=== PATIENT | female | born 1955 | race Hispanic/Latino ===

== ENCOUNTER → 2018-09-03 | Outpatient (CLI) | payer MEDICARE ==
[~2018-09-03] MED LIST: TYLENOL WITH C1 EAC1 PO
--- NOTE | 2018-09-03 14:06 | Diagnostic Imaging Report ---
Exam: Bone mineral density study. History: Osteoporosis Comparison: None Discussion: Evaluation of the left hip and lumbar spine was performed. The study is technically adequate. The patient's fracture risk is compared to an age-matched control. The patient denies prior surgery/fracture of the spine, hips or forearm. Left hip femoral neck bone mineral density: 0.7 g/cm2, T-score is -1.5, Z-score is 0. Left hip total bone mineral density: 0.8 g/cm2, T-score is -1.2, Z-score is -0.1. Lumbar spine total bone mineral density: 0.8 g/cm2, T-score is -2.4, Z-score is -0.6. Impression: 1. Bone mineralization by WHO Classification is low bone mass/osteopenia, the fracture risk is increased. 2. The FRAX 10-year probability of major osteoporotic fracture is 14% and hip fracture is 1.4%. These probabilities assume the patient is untreated. Signed by: Dr. Nakul Arevalo D.O., M.M.M. on 09/03/2018 2:03 PM
--- NOTE | 2018-09-06 08:36 | Diagnostic Imaging Report ---
#[id number] - MGSCRBIL #BILATERAL DIGITAL SCREENING MAMMOGRAM WITH CAD: 09/03/2018 CLINICAL: Routine screening. Comparison is made to exams dated: 08/18/2017 mammogram, 05/10/2015 mammogram and 04/17/2015 mammogram - [facility]. Current study contains 4 films. There are scattered fibroglandular elements in both breasts. Current study was also evaluated with a Computer Aided Detection (CAD) system. There are benign vascular calcifications in both breasts. There also are benign calcifications in the right breast. No significant masses, calcifications, or other findings are seen in either breast. There has been no significant interval change. IMPRESSION: BENIGN There is no mammographic evidence of malignancy. A 1 year screening mammogram is recommended. The patient will be notified by letter of the results. Brendan rivero/kaylin:09/03/2018 15:27:53 Insurance Sales Professional: Abby WILDER(R)(M), [facility] letter sent: Compared to Prior B9 Mammogram BI-RADS: 2 Benign
== END ==
LOC: MAMMO 12:27
PROVIDERS: ATTEND Family Medicine
DX: Z12.31 Encounter for screening mammogram for malignant neoplasm of breast (principal); M81.0 Age-related osteoporosis without current pathological fracture
CPT/HCPCS: 77067; 77080

== ENCOUNTER 2019-01-16 18:38 | Emergency (ER) | payer MEDICARE, OTHER ==
[~2019-01-16] VITALS: Ht 160 cm; Wt 63.5 kg
--- OUTSIDE RECORDS SUMMARY | 2019-01-16 18:40 | XMS REPORT ---
Author Author [facility] Address Unknown Phone Unavailable Care Team Providers Care Workers Compensation Administrator Name Role Phone Anthony ALY Unavailable Unavailable Maame ALLEN Unavailable Unavailable Problems This patient has no known problems. Allergies, Adverse Reactions, Alerts This patient has no known allergies or adverse reactions. Medications This patient has no known medications. Results Test Description Test Time Test Comments Text Results Atomic Results Result Comments BONE DXA DUAL ENERGY 2018-09-03 14:01:00 [place] [address] Patient Name: TEODORO NAVA MR #: [id number] : 1955 Age/Sex: 63/F Req #: [id number] Adm Physician: Ordered by: GERSON ALY Report #: [id number] Location: [facility] [place] Room/Bed: Procedure: [id number] DX/BONE DXA DUAL ENERGY Exam Date: Exam Time: REPORT STATUS: Signed Exam: Bone mineral density study. History: Osteoporosis Comparison: None Discussion: Evaluation of the left hip and lumbar spine was performed. The study is technically adequate. The patient's fracture risk is compared to an age-matched control. The patient denies prior surgery/fracture of the spine, hips or forearm. Left hip femoral neck bone mineral density: 0.7 g/cm2, T-score is -1.5, Z-score is 0. Left hip total bone mineral density: 0.8 g/cm2, T-score is -1.2, Z-score is -0.1. Lumbar spine total bone mineral density: 0.8 g/cm2, T-score is -2.4, Z-score is - 0.6. Impression: 1. Bone mineralization by WHO Classification is low bone mass/osteopenia, the fracture risk is increased. 2. The FRAX 10-year probability of major osteoporotic fracture is 14% and hip fracture is 1.4%. These probabilities assume the patient is untreated. Signed by: Dr. Dariel Arevalo D.O., M.M.M. on 09/03/2018 2:03 PM Dictated By: DARIEL AREVALO DO 02 Transcribed By: LUL on 09/03/181402 COPY TO: GERSON ALY MAMMOGRAPHY DIGITAL SCR BILAT 2018-09-03 13:57:00 [place] [address] Patient Name: TEODORO NAVA MR #: [id number] : 1955 Age/Sex: 63/F Req #: [id number] [facility] Physician: Ordered by: GERSON ALY Report #: [id number] Location: MAMMO Room/Bed: Procedure: [id number] MG/MAMMOGRAPHY DIGITAL SCR BILAT Exam Date: 09/03/18 Exam Time: 1233 REPORT STATUS: Signed #[id number] - MGSCRBIL #BILATERAL DIGITAL SCREENING MAMMOGRAM WITH CAD: 09/03/2018 CLINICAL: Routine screening. Comparison is made to exams dated: 08/18/2017 mammogram, 05/10/2015 mammogram and 04/17/2015 mammogram - [facility]. Current study contains 4 films. There are scattered fibroglandular elements in both breasts. Current study was also evaluated with a Computer Aided Detection (CAD) system. There are benign vascular calcifications in both breasts. There also are benign calcifications in the right breast. No significant masses, calcifications, or other findings are seen in either breast. There has been no significant interval change. IMPRESSION: BENIGN There is no mammographic evidence of malignancy. A 1 year screening mammogram is recommended. The patient will be notified by letter of the results. Clive rivero/tina:09/03/2018 15:27:53 Optical Instrument Assembler: Abby MOORE)(Maame), [facility] letter sent: Compared to Prior B9 Mammogram BI-RADS: 2 Benign Dictated By: CLIVE TEJADA DO 1527 Transcribed By: TINA on 09/03/18 1527 COPY TO: GERSON ALY MAMMOGRAPHY DIGITAL SCR BILAT [place] [address] Patient Name: TEODORO NAVA MR #: [id number] : 1955 Age/Sex: 62/F Req #: [id number] Adm Physician: Ordered by: RON ALLEN MD Report #: [id number] Location: MAMMO Room/Bed: Procedure: [id number] MG/MAMMOGRAPHY DIGITAL SCR BILAT Exam Date: 08/18/17 Exam Time: 1009 REPORT STATUS: Signed #[id number] - MGSCRBIL #BILATERAL DIGITAL SCREENING MAMMOGRAM WITH CAD: 08/18/2017 CLINICAL: Routine screening. Comparison is made to exams dated: 04/28/2016 mammogram, 05/10/2015 mammogram and 08/12/2012 mammogram - [facility]. Current study contains 4 films. There are scattered fibroglandular elements in both breasts. Current study was also evaluated with a Computer Aided Detection (CAD) system. There are benign vascular calcifications in both breasts. Dermal calcification in the right breast is present. No significant masses, calcifications, or other findings are seen in either breast. There has been no significant interval change. IMPRESSION: BENIGN There is no mammographic evidence of malignancy. A 1 year screening mammogram is recommended. The patient will be notified by letter of the results. Clive Tejada Jr., D.O. cw/:08/22/2017 12:31:36 Optical Instrument Assembler: Abby MOORE)(Maame), [facility] letter sent: Compared to Prior B9 Mammogram BI-RADS: 2 Benign Dictated By: CLIVE TEJADA DO 1231 Transcribed By: TINA on 08/22/17 1231 COPY TO: RON ALLEN MD
[2019-01-16 19:40] VITALS: BP 155/74
== END 2019-01-16 19:41 | disposition home or self-care (01) ==
LOC: ER 18:38
DX: E11.65 Type 2 diabetes mellitus with hyperglycemia (principal); Z63.79 Other stressful life events affecting family and household; I10 Essential (primary) hypertension; E78.5 Hyperlipidemia, unspecified
CPT/HCPCS: 36415; 82948; 99282

== ENCOUNTER 2019-04-19 02:27 | Emergency (ER) | payer MEDICARE, OTHER ==
[~2019-04-19] VITALS: Ht 160 cm; Wt 64.0 kg
[2019-04-19] MEDS ORDERED: ALBUTEROL/IPRATROPIUM 3 ML NEB NEB ONE (03:15)
[2019-04-19] MEDS ORDERED: PREDNISONE 20 MG TAB PO SCH (03:15)
--- NOTE | 2019-04-19 03:56 | Diagnostic Imaging Report ---
EXAMINATION: CHEST 2 VIEWS INDICATION: ^Cough ^[id number] ^[id number] COMPARISON: None available FINDINGS: PA and lateral views TUBES and LINES: None. LUNGS: Lungs are well inflated. There is no evidence of pneumonia or pulmonary edema. PLEURA: No pleural effusion or pneumothorax. HEART AND MEDIASTINUM: The cardiomediastinal silhouette is unremarkable.. BONES AND SOFT TISSUES: Degenerative changes of the spine. Soft tissues are unremarkable. UPPER ABDOMEN: No free air under the diaphragm. Cholecystectomy clips in the right upper quadrant. IMPRESSION: No acute thoracic abnormality. Signed by: Dr. Anel Chappell MD on 04/19/2019 3:53 AM
[2019-04-19 05:21] LABS: BILIRUBIN,URINE NEGATIVE (NEGATIVE); CLARITY,URINE SL CLOUDY (CLEAR); COLOR,URINE YELLOW (YELLOW); KETONES,URINE NEGATIVE (NEGATIVE); LEUKOCYTE ESTERASE ,URINE SMALL (NEGATIVE); NITRITE,URINE NEGATIVE (NEGATIVE); PROTEIN,URINE DIPSTICK NEGATIVE (NEGATIVE); URINE UROBILINOGEN 0.2 mg/dL (0.2 - 1)
[2019-04-19 05:47] LABS: BACTERIA,URINE MANY /HPF; EPITHELIAL CELLS,URINE FEW /LPF; WBC,URINE (MAN) >50 /HPF (0-5)
[2019-04-19 05:48] LABS: RENAL EPITHELIAL CELLS,URINE FEW; TRANSITIONAL EPI CELLS,URINE FEW
[2019-04-19] MEDS ORDERED: PREDNISONE 20 MG TAB ONE (06:34)
== END 2019-04-19 06:44 | disposition home or self-care (01) ==
LOC: ER 02:27
DX: R05 Cough (principal); J04.0 Acute laryngitis; J06.9 Acute upper respiratory infection, unspecified; N30.91 Cystitis, unspecified with hematuria
CPT/HCPCS: 71046; 81001; 93005; 99284; J7512

== ENCOUNTER 2019-04-24 19:05 | Emergency (ER) | payer MEDICARE, OTHER ==
[~2019-04-24] VITALS: Ht 160 cm; Wt 64.0 kg
[2019-04-24 20:13] LABS: BASOPHILS # (AUTO) 0.1 (0.0-0.1); BASOPHILS % 0.8 % (0.0-1.0); EOSINOPHILS # (AUTO) 0.2 (0.0-0.4); EOSINOPHILS % 1.2 % (0.0-6.0); HEMATOCRIT 36.7 % (34.2-44.1); HEMOGLOBIN 11.7 g/dL (12.0-16.0); LYMPHOCYTES % 37.9 % (18.0-39.1); MEAN CORPUSCULAR HEMOGLOBIN 30.1 pg (28-32); MEAN CORPUSCULAR HGB CONC 31.9 g/dL (31-35); MEAN CORPUSCULAR VOLUME 94.3 fL (81-99); MONOCYTES # (AUTO) 0.8 (0.2-0.8); MONOCYTES % 6.3 % (4.4-11.3); NEUTROPHILS % 53.3 % (38.7-80.0); PLATELET COUNT 286 x10e3/uL (140-360); RED BLOOD COUNT 3.89 x10e6/uL (3.6-5.1); RED CELL DISTRIBUTION WIDTH 13.3 % (11.7-14.4)
[2019-04-24 20:14] LABS: BILIRUBIN,URINE NEGATIVE (NEGATIVE); CLARITY,URINE SL CLOUDY (CLEAR); COLOR,URINE YELLOW (YELLOW); KETONES,URINE NEGATIVE (NEGATIVE); LEUKOCYTE ESTERASE ,URINE NEGATIVE (NEGATIVE); NITRITE,URINE NEGATIVE (NEGATIVE); PROTEIN,URINE DIPSTICK TRACE (NEGATIVE); URINE UROBILINOGEN 0.2 mg/dL (0.2 - 1)
--- NOTE | 2019-04-24 20:26 | Diagnostic Imaging Report ---
EXAMINATION: CHEST SINGLE (PORTABLE) INDICATION: ^ERMD ORDER ^[id number] ^1958 ^Y COMPARISON: 04/19/2019 FINDINGS: AP view TUBES and LINES: None. LUNGS: Lungs are well inflated. Lungs are clear. There is no evidence of pneumonia or pulmonary edema. PLEURA: No pleural effusion or pneumothorax. HEART AND MEDIASTINUM: The cardiomediastinal silhouette is unremarkable. BONES AND SOFT TISSUES: No acute osseous lesion. Soft tissues are unremarkable. UPPER ABDOMEN: No free air under the diaphragm. IMPRESSION: No acute thoracic abnormality. Signed by: Dr. Eliot Mccloud MD on 04/24/2019 8:23 PM
[2019-04-24 20:28] LABS: ALANINE AMINOTRANSFERASE 22 IU/L (0-55); ALBUMIN 3.8 g/dL (3.5-5.0); ALBUMIN/GLOBULIN RATIO 1.1 (0.8-2.0); ALKALINE PHOSPHATASE 46 IU/L (40-150); ANION GAP 16.6 mmol/L (8-16); BLOOD UREA NITROGEN 30 mg/dL (7-26); BUN/CREATININE RATIO 37 (6-25); CALCIUM 9.8 mg/dL (8.4-10.2); CARBON DIOXIDE 27 mmol/L (22-29); CHLORIDE 100 mmol/L (98-107); CREATINE KINASE 41 IU/L (29-168); CREATININE, SERUM 0.81 mg/dL (0.57-1.11); EST GLOMERULAR FILTRATION RATE > 60 ML/MIN (60-); GLUCOSE 116 mg/dL (74-118); POTASSIUM 3.6 mmol/L (3.5-5.1); SODIUM 140 mmol/L (136-145)
[2019-04-24 20:29] LABS: PREGNANCY TEST, URINE NEGATIVE (NEGATIVE)
[2019-04-24 20:34] LABS: BACTERIA,URINE FEW /HPF; CALCIUM OXALATE CRYSTALS,UR MANY (FEW); EPITHELIAL CELLS,URINE RARE /LPF; RBC,URINE 0-5 /HPF (0-5); WBC,URINE (MAN) 0-5 /HPF (0-5)
[2019-04-24 21:38] VITALS: BP 114/57
== END 2019-04-24 22:15 | disposition home or self-care (01) ==
LOC: ER 19:05
DX: R06.00 Dyspnea, unspecified (principal); R05 Cough; J20.9 Acute bronchitis, unspecified
CPT/HCPCS: 36415; 71045; 80053; 81001; 81025; 82550; 82553; 84484; 85025; 93005; 99283

== ENCOUNTER 2019-07-23 18:47 | Emergency (ER) | payer OTHER ==
[~2019-07-23] VITALS: Ht 160 cm; Wt 64.0 kg
[2019-07-23] MEDS ORDERED: ONDANSETRON HCL 4 MG ORAL DISINTEGRATING TAB ONE (19:53)
[2019-07-23] MEDS ORDERED: ONDANSETRON HCL 4 MG ORAL DISINTEGRATING TAB PO ONE (20:00)
== END 2019-07-23 20:30 | disposition home or self-care (01) ==
LOC: ER 18:55
DX: E11.65 Type 2 diabetes mellitus with hyperglycemia (principal); I10 Essential (primary) hypertension; E78.5 Hyperlipidemia, unspecified
CPT/HCPCS: 36415; 82948; 99282; Q0162

== ENCOUNTER → 2020-08-24 | Outpatient (CLI) | payer MEDICARE ==
--- NOTE | 2020-08-24 12:48 | Diagnostic Imaging Report ---
EXAM: BONE MINERAL DENSITY HISTORY: Osteoporosis COMPARISON: Bone density evaluation 09/03/2018 DISCUSSION: Evaluation of the left hip and lumbar spine was performed utilizing DEXA Hologic bone densitometer. The study is technically adequate. The patient's fracture risk is compared to an age-matched control. The patient denies prior surgery/fracture of the spine, hips or forearm. Left hip femoral neck bone mineral density: 0.706 g/cm2, T-score is -1.4, Z-score is 0.2. Left hip total bone mineral density: 0.775 g/cm2, T-score is -1.4, Z-score is -0.1. Total left hip bone mineral density is decreased by -2.9% compared to prior exam, which is not statistically significant. Lumbar spine total bone mineral density: 0.811 gm/cm2, T-score is -2.1, Z-score is -0.2. Total lumbar spine bone mineral density is increased by 3.1% compared to prior exam, which is statistically significant. Impression: Bone mineralization by WHO Classification is osteopenia, the fracture risk is increased. World Health Organization Fracture Risk Assessment Tool estimates 10 year fracture risk of 25% for major osteoporotic fracture and 2.3% for hip fracture. Fracture probability calculated for an untreated patient and probability may be lower if patient has received treatment. Signed by: Dr. Rajesh Mondragon M.D. on 08/24/2020 12:44 PM
== END ==
LOC: MAMMO 11:52
PROVIDERS: ATTEND Family Medicine
DX: Z12.31 Encounter for screening mammogram for malignant neoplasm of breast (principal); Z13.820 Encounter for screening for osteoporosis
CPT/HCPCS: 77067; 77080

== ENCOUNTER 2024-05-09 17:25 | Observation (INO) | payer MEDICARE ==
[~2024-05-09] VITALS: Ht 157.5 cm; Wt 64.4 kg
[~2024-05-09 17:25] MED LIST changes: -LACTATED RINGER'S 1,000 ML ONE; -LIDOCAINE HCL 2% LOCAL INJ 5 ML SDV VIAL INJ ONE; -PROPOFOL IV EMULSION 10 MG/ML 20 ML VIAL ONE; -PROPOFOL IV EMULSION 10 MG/ML 50 ML VIAL IV ONE
[2024-05-09 20:00] VITALS: BP 142/63; PULSE 83; RESP 18; TEMP 99.2; O2SAT 100
[2024-05-09 20:18] LABS: ANION GAP 15.9 mmol/L (8-16); CALCIUM 8.7 mg/dL (8.4-10.2); CREATININE, SERUM 0.65 mg/dL (0.57-1.11); POTASSIUM 3.9 mmol/L (3.5-5.1)
[2024-05-09] MEDS: DEXTROSE 5%/LACTATED RINGERS 1,000 ML IV SCH (20:26)
[2024-05-09] MEDS: Morphine 4mg INJECTION 4 MG/ML INJ IV PRN (20:26)
[2024-05-09] MEDS ORDERED: IOPAMIDOL 370 MG/ML 100 ML INFUS..BTL INJ ONE (20:30)
[2024-05-09 21:00] VITALS: BP 142/63; PULSE 83; RESP 18; TEMP 99.2; O2SAT 100
[2024-05-09 21:21] VITALS: BP 142/63; PULSE 83; RESP 18; TEMP 99.2; O2SAT 100
[2024-05-09] MEDS ORDERED: ACETAMINOPHEN 325 MG TAB PO PRN (23:30)
[2024-05-09] MEDS ORDERED: HYDRALAZINE HCL 20 MG/ML VIAL IV PRN (23:30)
[2024-05-09] MEDS ORDERED: ONDANSETRON HCL INJ 2MG/ML 2ML 2 MG/ML VIAL IV PRN (23:30)
[2024-05-10 04:00] VITALS: BP 135/63; PULSE 84; RESP 18; TEMP 98.3; O2SAT 98
[2024-05-10 06:26] LABS: BASOPHILS # (AUTO) 0.1 (0.0-0.1); BASOPHILS % 0.9 % (0.0-1.0); EOSINOPHILS # (AUTO) 0.2 (0.0-0.4); EOSINOPHILS % 1.8 % (0.0-6.0); HEMATOCRIT 35.4 % (34.2-44.1); HEMOGLOBIN 11.5 g/dL (12.0-16.0); LYMPHOCYTES # (AUTO) 2.9 (1.0-3.2); LYMPHOCYTES % 27.1 % (18.0-39.1); MEAN CORPUSCULAR HEMOGLOBIN 31.1 pg (28-32); MEAN CORPUSCULAR HGB CONC 32.5 g/dL (31-35); MEAN CORPUSCULAR VOLUME 95.7 fL (81-99); MONOCYTES % 8.9 % (4.4-11.3); NEUTROPHILS # (AUTO) 6.6 (2.1-6.9); NEUTROPHILS % 61.1 % (38.7-80.0); PLATELET COUNT 202 x10e3/uL (140-360); RED CELL DISTRIBUTION WIDTH 13.1 % (11.7-14.4); WHITE BLOOD COUNT 10.84 x10e3/uL (4.8-10.8)
[2024-05-10] MEDS ORDERED: DEXTROSE 50% SYRINGE 50 ML IV PRN (06:45)
[2024-05-10 06:56] LABS: ALBUMIN 3.4 g/dL (3.5-5.0); ANION GAP 12.8 mmol/L (8-16); BILIRUBIN,TOTAL 0.7 mg/dL (0.2-1.2); CALCIUM 8.6 mg/dL (8.4-10.2); CREATININE, SERUM 0.75 mg/dL (0.57-1.11); POTASSIUM 3.8 mmol/L (3.5-5.1); TOTAL PROTEIN 6.7 g/dL (6.5-8.1)
[2024-05-10] MEDS: INSULIN LISPRO 100 UNIT/1 ML 3ML VIAL SQ SCH (07:30)
[2024-05-10 08:00] VITALS: BP 113/62; PULSE 73; RESP 16; TEMP 98.4; O2SAT 100
[2024-05-10 09:00] VITALS: BP 113/62; PULSE 73; RESP 16; TEMP 98.4; O2SAT 100
[2024-05-10] MEDS: SENNOSIDES 8.6 MG TAB PO SCH (09:00)
[2024-05-10] MEDS: DOCUSATE SODIUM 100 MG CAP PO SCH (09:00)
[2024-05-10] MEDS ORDERED: OMEPRAZOLE40 MG PO (11:02)
[2024-05-10 12:00] VITALS: BP 119/62; PULSE 73; RESP 16; TEMP 98.8; O2SAT 97
[2024-05-10] MEDS ORDERED: ENOXAPARIN SOD INJ 40 MG/0.4 ML SYR SC SCH (17:00)
== END 2024-05-10 12:45 | disposition home or self-care (01) ==
LOC: EDSTATUS 18:53 → INTOOBSV 19:00 → MED/SURG 19:00
PROVIDERS: ADMIT Internal Medicine; ATTEND Internal Medicine
DX: R07.89 Other chest pain (principal); K21.9 Gastro-esophageal reflux disease without esophagitis; K20.90 Esophagitis, unspecified without bleeding; E78.5 Hyperlipidemia, unspecified; E11.21 Type 2 diabetes mellitus with diabetic nephropathy; M81.0 Age-related osteoporosis without current pathological fracture; Z79.84 Long term (current) use of oral hypoglycemic drugs; Z79.899 Other long term (current) drug therapy
CPT/HCPCS: 36415; 71260; 74160; 80048; 80053; 82948; 85025; G0378; J2270; J2470; J2543; Q9967; U0002

== ENCOUNTER → 2024-05-09 | Day surgery (SDC) | payer MEDICARE ==
[2024-05-06 14:41] LABS: WHITE BLOOD COUNT 11.18 x10e3/uL (4.8-10.8)
[2024-05-06 14:43] LABS: HEMATOCRIT 39.4 % (34.2-44.1); HEMOGLOBIN 12.8 g/dL (12.0-16.0); MEAN CORPUSCULAR HEMOGLOBIN 31.5 pg (28-32); MEAN CORPUSCULAR HGB CONC 32.5 g/dL (31-35); RED BLOOD COUNT 4.06 x10e6/uL (3.6-5.1); RED CELL DISTRIBUTION WIDTH 13.1 % (11.7-14.4)
[2024-05-06 14:44] LABS: BASOPHILS # (AUTO) 0.2 (0.0-0.1); BASOPHILS % 1.4 % (0.0-1.0); EOSINOPHILS # (AUTO) 0.3 (0.0-0.4); EOSINOPHILS % 2.7 % (0.0-6.0); LYMPHOCYTES # (AUTO) 3.2 (1.0-3.2); LYMPHOCYTES % 28.4 % (18.0-39.1); MONOCYTES # (AUTO) 1.1 (0.2-0.8); MONOCYTES % 9.4 % (4.4-11.3); NEUTROPHILS # (AUTO) 6.5 (2.1-6.9); NEUTROPHILS % 57.8 % (38.7-80.0); PLATELET COUNT 232 x10e3/uL (140-360)
[~2024-05-09] MED LIST changes: +ALENDRONATE SOD70 MG PO; +ATORVASTATIN CA20 MG PO; +GLIPIZIDE5 MG PO; +LACTATED RINGER'S 1,000 ML ONE; +LIDOCAINE HCL 2% LOCAL INJ 5 ML SDV VIAL INJ ONE; +OMEPRAZOLE40 MG PO; +PROPOFOL IV EMULSION 10 MG/ML 20 ML VIAL ONE; +PROPOFOL IV EMULSION 10 MG/ML 50 ML VIAL IV ONE; +VITAMIN D3 COM1 EACH PO
[2024-05-09 09:28] VITALS: TEMP 97
[2024-05-09 09:55] VITALS: BP 107/63; PULSE 66; RESP 17; O2SAT 98
== END | disposition home or self-care (01) ==
LOC: ENDO 07:06
PROVIDERS: ATTEND Internal Medicine Gastroenterology
DX: K29.70 Gastritis, unspecified, without bleeding (principal); K22.2 Esophageal obstruction; K20.90 Esophagitis, unspecified without bleeding; K21.9 Gastro-esophageal reflux disease without esophagitis; Z71.3 Dietary counseling and surveillance; E11.9 Type 2 diabetes mellitus without complications; M81.0 Age-related osteoporosis without current pathological fracture; E78.00 Pure hypercholesterolemia, unspecified; Z88.2 Allergy status to sulfonamides; Z88.8 Allergy status to other drugs, medicaments and biological substances; Z01.810 Encounter for preprocedural cardiovascular examination; Z01.812 Encounter for preprocedural laboratory examination; Z79.84 Long term (current) use of oral hypoglycemic drugs; Z79.899 Other long term (current) drug therapy; Z68.25 Body mass index [BMI] 25.0-25.9, adult; Z80.0 Family history of malignant neoplasm of digestive organs
CPT/HCPCS: 36415; 43239; 43450; 85025; 93005; J2001; J2470; J2704 ×2; J7121